=== PATIENT | female | born 2000 | race Hispanic/Latino ===

== ENCOUNTER 2022-07-07 10:01 | Day surgery (SDC) | payer BC, OTHER ==
[2022-07-07 10:38] VITALS: BMI 28.3
[2022-07-07] MEDS ORDERED: hydrALAZINE 20 MG/ML VIAL SLOW IVP PRN (12:53)
== END 2022-07-07 13:20 | disposition home or self-care (01) ==
LOC: CSHLD/OP 10:01
PROVIDERS: ATTEND Obstetrics & Gynecology
DX: O47.1 False labor at or after 37 completed weeks of gestation (principal); Z3A.39 39 weeks gestation of pregnancy
CPT/HCPCS: 99283

== ENCOUNTER 2022-07-09 04:51 | Inpatient (IN) | payer BC, OTHER ==
[~2022-07-09 04:51] MED LIST: Acetaminophen 500 MG TAB PO PRN; Butorphanol Tartrate 1 MG/ML VIAL SLOW IVP PRN; Carboprost 250 MCG/ML AMP IM PRN; Diphenoxylate HCl/Atropine Tablet PO PRN; Docusate 100 MG CAP PO PRN; HYDROcodone/Acetaminophen 5/325 mg Tablet PO PRN; Ibuprofen 800 MG TAB PO PRN; Lactated Ringer's 1,000 ML IV SCH; Lidocaine 1% (PF) 30 ML VIAL SC PRN; Methylergonovine 0.2 MG/ML VIAL IM PRN; Misoprostol 200 MCG TAB PR PRN; NS w/ Oxytocin 30 units 500 ML IV SCH; Ondansetron PF 4 MG/2 ML Vial IVP PRN; Promethazine HCl 25 MG/ML VIAL IM PRN; hydrALAZINE 20 MG/ML VIAL SLOW IVP PRN
[2022-07-09 05:43] VITALS: BMI 29.5
[2022-07-09] MEDS ORDERED: Misoprostol 100 MCG TAB VAG SCH (06:00)
[2022-07-09] MEDS ORDERED: Fentanyl 2 mcg/Bup 0.1% Cadd 100 ML ONE (06:25)
[2022-07-09 06:35] LABS: Hemoglobin 11.3 g/dL (12.0-15.5); Mean Corpuscular HGB CONC 33.2 g/dL (32.0-36.0); Mean Corpuscular Hemoglobin 28.4 pg (27.0-33.0); Mean Corpuscular Volume 85.4 fl (81.6-98.3); Platelet Count 237 10x3/uL (150-450); RBC Distribution Width 14.7 % (11.5-14.5); Red Blood Cell (RBC) Count 3.98 10x6/uL (3.90-5.03); White Blood Cell (WBC) Count 15.1 10x3/uL (3.5-10.5)
[2022-07-09 06:56] LABS: Syphilis Antibody Nonreactive (Nonreactive); Syphilis Antibody Index 0.03 S/CO (<1.00 Non-Reactive)
[2022-07-09 06:57] LABS: HBSAg Index 0.15 S/CO (0-0.99); Hep B Surf Ag Non-Reactive S/CO (NonReactive)
[2022-07-09] MEDS ORDERED: Acetaminophen 325 MG TAB PO PRN (07:09)
[2022-07-09] MEDS ORDERED: Ondansetron PF 4 MG/2 ML Vial IVP PRN ×2 (07:09→14:07)
[2022-07-09] MEDS ORDERED: Moisturizing Cream (Eucerin) 113 GM JAR TOP PRN (07:09)
[2022-07-09] MEDS ORDERED: Promethazine HCl 25 MG/ML VIAL IM PRN ×2 (07:09→14:07)
[2022-07-09] MEDS ORDERED: diphenhydrAMINE 50 MG/ML VIAL IVP PRN (07:09)
[2022-07-09] MEDS ORDERED: Lactated Ringer's 500 ML IV PRN (07:09)
[2022-07-09] MEDS ORDERED: Naloxone HCl 0.4 mg/ml Vial IVP PRN ×2 (07:09)
[2022-07-09] MEDS ORDERED: ePHEDrine Sulfate 50 MG/10 ML VIAL SLOW IVP PRN (07:09)
[2022-07-09] MEDS ORDERED: Communication Order-Pharmacy FS SCH (07:15)
[2022-07-09] MEDS ORDERED: Fentanyl 2 mcg/Bupivacaine 0.1% Cassette 100 ML EPIDURAL SCH (07:15)
[2022-07-09 10:50] LABS: SARS-CoV-2 NAA Rapid Test Not Detected (NotDetected)
[2022-07-09] MEDS ORDERED: Oxytocin 10 UNITS/ML VIAL ONE (12:57)
[2022-07-09] MEDS ORDERED: Misoprostol 200 MCG TAB ONE (12:58)
[2022-07-09] MEDS ORDERED: Tranexamic Acid 1,000 MG/10 ML VIAL ONE (13:02)
[2022-07-09] MEDS ORDERED: Boostrix 0.5 ML (Tdap) VIAL (>/=7 yrs of age) IM ONE (14:07)
[2022-07-09] MEDS ORDERED: Lanolin Ointment 7 GM TUBE TOP PRN (14:07)
[2022-07-09] MEDS ORDERED: Preparation H Ointment 28 GM TUBE PR PRN (14:07)
[2022-07-09] MEDS ORDERED: hydrALAZINE 20 MG/ML VIAL SLOW IVP PRN (14:07)
[2022-07-09] MEDS ORDERED: HYDROcodone/Acetaminophen 5/325 mg Tablet PO PRN (14:07)
[2022-07-09] MEDS ORDERED: Benzocaine-Menthol 82.5 ML CAN TOP PRN (14:07)
[2022-07-09] MEDS ORDERED: Zolpidem Tartrate 5 MG TAB PO PRN (14:07)
[2022-07-09] MEDS ORDERED: diphenhydrAMINE 25 MG CAP PO PRN (14:07)
[2022-07-09] MEDS ORDERED: Milk Of Magnesia 30 ML UDCUP PO PRN (14:07)
[2022-07-09] MEDS ORDERED: NS w/ Oxytocin 30 units 500 ML IV SCH (14:07)
[2022-07-09] MEDS ORDERED: Bisacodyl 10 MG SUPP PR PRN (14:07)
[2022-07-09] MEDS ORDERED: Measles/Mumps/Rubella 10 MCG/0.5 ML VIAL SC ONE (14:07)
[2022-07-09] MEDS: Ibuprofen 800 MG TAB PO SCH ×2 (14:17→21:15)
[2022-07-09] MEDS: Ferrous Sulfate 325 MG TAB PO SCH (18:26)
[2022-07-09] MEDS: Docusate 100 MG CAP PO SCH (21:15)
[2022-07-10 03:50] LABS: Hemoglobin 8.2 g/dL (12.0-15.5); Mean Corpuscular HGB CONC 33.6 g/dL (32.0-36.0); Mean Corpuscular Hemoglobin 29.1 pg (27.0-33.0); Mean Corpuscular Volume 86.5 fl (81.6-98.3); Mean Platelet Volume 10.7 fl (7.4-10.4); Platelet Count 201 10x3/uL (150-450); RBC Distribution Width 14.7 % (11.5-14.5); Red Blood Cell (RBC) Count 2.82 10x6/uL (3.90-5.03); White Blood Cell (WBC) Count 17.2 10x3/uL (3.5-10.5)
[2022-07-10] MEDS: Ibuprofen 800 MG TAB PO SCH ×3 (05:25→21:36)
[2022-07-10] MEDS: Docusate 100 MG CAP PO SCH ×2 (08:08→21:36)
[2022-07-10] MEDS: Ferrous Sulfate 325 MG TAB PO SCH ×2 (08:08→17:08)
[2022-07-10] MEDS: Prenatal Vitamin 1 TAB PO SCH (08:08)
[2022-07-11] MEDS: Ibuprofen 800 MG TAB PO SCH (05:34)
[2022-07-11 08:15] VITALS: BP 116/71; TEMP 98.2
[2022-07-11] MEDS: Ferrous Sulfate 325 MG TAB PO SCH (09:10)
[2022-07-11] MEDS: Prenatal Vitamin 1 TAB PO SCH (09:10)
[2022-07-11] MEDS: Docusate 100 MG CAP PO SCH (09:10)
== END 2022-07-11 14:10 | disposition home or self-care (01) | DRG 807 ==
LOC: CSHLD 04:51 → CSHPP 15:10
PROVIDERS: ADMIT Obstetrics & Gynecology; ATTEND Obstetrics & Gynecology
PROC: 10E0XZZ Delivery of Products of Conception, External Approach (ICD-10-PCS; principal; 2022-07-09)
DX: O80 Encounter for full-term uncomplicated delivery (principal); Z37.0 Single live birth; Z3A.39 39 weeks gestation of pregnancy; Z20.822 Contact with and (suspected) exposure to COVID-19; Z79.82 Long term (current) use of aspirin
CPT/HCPCS: 36415; 51702; 85027; 86762; 86780; 86850; 86900; 86901; 87340; J2590; U0002